=== PATIENT | male | born 2000 | race Caucasian/White ===

== ENCOUNTER 2024-12-14 18:10 | Emergency (ER) | payer OTHER ==
[~2024-12-14] VITALS: Ht 175.3 cm; Wt 75.6 kg
[2024-12-14 19:47] LABS: BASO # 0.1 10^3/uL (0.0-0.2); BASO % 0.8 % (0.0-1.0); EOS # 0.2 10^3/uL (0.0-0.5); EOS % 1.5 % (0.0-3.0); HEMATOCRIT 45.6 % (42.0-52.0); HEMOGLOBIN 15.1 g/dl (13.5-17.5); LYMPH # 2.3 10^3/uL (1.5-5.0); LYMPH % 21.4 % (24.0-44.0); MEAN CORPUSCULAR HEMOGLOBIN 28.8 pg (27.0-33.0); MEAN CORPUSCULAR HGB CONC 33.1 g/dl (32.0-36.5); MONO # 0.9 10^3/uL (0.0-0.8); NEUTROPHILS # 7.3 10^3/uL (1.5-8.5); PLATELET COUNT, AUTOMATED 267 10^3/uL (150-450); RED BLOOD COUNT 5.24 10^6/uL (4.30-6.10); WHITE BLOOD COUNT 10.7 10^3/uL (4.0-10.0)
[2024-12-14] MEDS: MORPHINE 4 MG/ML 1ML VIAL IV ONE ×2 (19:50→21:40)
[2024-12-14] MEDS: NS (Normal Saline) 0.9% 1,000 ML IV SCH (19:55)
[2024-12-14 19:58] LABS: INR 0.98; PROTHROMBIN TIME 13.3 SECONDS (12.5-14.5)
[2024-12-14] MEDS: ONDANSETRON 4MG 2ML VIAL IV ONE (20:07)
[2024-12-14 20:20] LABS: LIPASE 51 U/L (12-53)
[2024-12-14 20:25] LABS: ALBUMIN 4.4 G/DL (3.2-5.2); ALKALINE PHOSPHATASE 70 U/L (40-129); ALT/SGPT 18 U/L (7.0-40); AST/SGOT 15 U/L (<34); BILIRUBIN,DIRECT 0.1 MG/DL (<0.4); BILIRUBIN,TOTAL 0.4 MG/DL (0.3-1.2); BLOOD UREA NITROGEN 10 MG/DL (9-23); CALCIUM LEVEL 8.7 MG/DL (8.5-10.1); CARBON DIOXIDE LEVEL 30 MMOL/L (20-31); CHLORIDE LEVEL 103 MMOL/L (98-107); CK-MB VALUE MASS < 1.0 NG/ML (<3.6); CREATININE FOR GFR 1.16 MG/DL (0.70-1.30); GLOMERULAR FILTRATION RATE > 90.0 (>60); GLUCOSE, FASTING 85 MG/DL (60-100); SODIUM LEVEL 142 MMOL/L (136-145); TOTAL PROTEIN 7.2 G/DL (5.7-8.2)
[2024-12-14 20:32] LABS: CPK CREATINE PHOSPHOKINASE 241 U/L (46-171); MB/CK RELATIVE INDEX 0.41 (< OR =4)
[2024-12-14] MEDS: propofoL 200 MG/20 ML VIAL IV.PROC PRN (20:41)
[2024-12-14] MEDS: LIDOCAINE 1% MDV 20ML VIAL SC ONE (20:45)
[2024-12-14] MEDS: propofoL 200 MG/20 ML VIAL IV ONE (20:45)
[2024-12-14 22:30] VITALS: BP 135/85
[2024-12-14 22:36] VITALS: TEMP 98.8
[2024-12-14 22:50] VITALS: O2SAT 99
== END 2024-12-14 23:24 | disposition short-term general hospital (02) ==
LOC: M ED 18:10
DX: J93.0 Spontaneous tension pneumothorax (principal)
CPT/HCPCS: 32551; 71045; 80048; 80076; 82550; 82553; 83690; 84484; 85025; 85610; 93005; 93041; 94760; 96361; 96374; 96375; 96376; 99156; 99285; J2405